=== PATIENT | female | born 1965 | race Two or more races ===

== ENCOUNTER 2017-11-17 07:58 | Outpatient (CLI) | payer OTHER ==
[~2017-11-17 07:58] MED LIST: KETO10TA2; TRAM1TAB98; ZYRTEC10 MG
== END 2017-11-17 08:15 | disposition home or self-care (01) ==
LOC: TOM 07:58
DX: R10.9 Unspecified abdominal pain (principal)

== ENCOUNTER 2017-12-21 11:13 | Outpatient (CLI) | payer OTHER | END 2017-12-21 11:23 | disposition home or self-care (01) | LOC: LAB 11:13 | DX: C18.3 Malignant neoplasm of hepatic flexure (principal); Z51.81 Encounter for therapeutic drug level monitoring ==

== ENCOUNTER 2017-12-27 09:09 | Outpatient (CLI) | payer OTHER | END 2017-12-27 13:34 | disposition home or self-care (01) | LOC: TOM 09:09 | DX: C18.3 Malignant neoplasm of hepatic flexure (principal) ==

== ENCOUNTER 2018-06-14 10:06 | Outpatient (CLI) | payer OTHER | END 2018-06-14 10:07 | disposition home or self-care (01) | LOC: SONOGRAMA 10:06 | DX: E04.1 Nontoxic single thyroid nodule (principal) ==

== ENCOUNTER 2018-07-14 10:57 | Outpatient (CLI) | payer OTHER | END 2018-07-14 13:28 | disposition home or self-care (01) | LOC: SONOGRAMA 10:57 | DX: C50.412 Malignant neoplasm of upper-outer quadrant of left female breast (principal); N60.11 Diffuse cystic mastopathy of right breast; N60.12 Diffuse cystic mastopathy of left breast ==

== ENCOUNTER 2018-07-28 08:54 | Outpatient (CLI) | payer OTHER | END 2018-07-28 08:59 | disposition home or self-care (01) | LOC: SONOGRAMA 08:54 | DX: E04.2 Nontoxic multinodular goiter (principal) ==

== ENCOUNTER 2018-08-23 10:20 | Outpatient (CLI) | payer OTHER | END 2018-08-23 10:24 | disposition home or self-care (01) | LOC: MAMO-SONO 10:20 | DX: C50.412 Malignant neoplasm of upper-outer quadrant of left female breast (principal); N60.11 Diffuse cystic mastopathy of right breast; N60.12 Diffuse cystic mastopathy of left breast ==

== ENCOUNTER 2019-01-30 08:06 | Outpatient (CLI) | payer OTHER | END 2019-01-30 08:46 | disposition home or self-care (01) | LOC: RAD 08:06 | DX: M54.2 Cervicalgia (principal); J30.89 Other allergic rhinitis ==

== ENCOUNTER 2019-10-13 08:03 | Outpatient (CLI) | payer OTHER | END 2019-10-13 08:21 | disposition home or self-care (01) | LOC: MAMO-SONO 08:03 | DX: N60.11 Diffuse cystic mastopathy of right breast (principal); N60.12 Diffuse cystic mastopathy of left breast; C50.412 Malignant neoplasm of upper-outer quadrant of left female breast ==

== ENCOUNTER 2019-10-16 07:12 | Outpatient (CLI) | payer OTHER | END 2019-10-16 07:55 | disposition home or self-care (01) | LOC: SONOGRAMA 07:12 → MAMO-SONO 07:15 → SONOGRAMA 07:55 | DX: R16.1 Splenomegaly, not elsewhere classified (principal) ==

== ENCOUNTER → 2020-01-22 | Emergency (ER) | payer OTHER ==
[~2020-01-22] VITALS: Ht 167.6 cm; Wt 115.7 kg
[~2020-01-22] MED LIST changes: +BACTRIM DS TAB1 EACH PO; +GLIMEPIRIDE1 M1 PO; +KETO10TA2 PO; +LOSARTAN POTASS50 MG PO; +METFORMIN HCL1000 M2 PO; +OCUVITE EYE HE1 EACH PO; +OSTERA TABLET1 EACH PO; +TIROSINT25 MCG PO; +ZYRTEC10 M3 PO
== END ==
LOC: ER 08:35
DX: I80.8 Phlebitis and thrombophlebitis of other sites (principal); L03.114 Cellulitis of left upper limb

== ENCOUNTER 2020-09-18 08:22 | Outpatient (CLI) | payer OTHER | END 2020-09-18 08:34 | disposition HB | LOC: SONOGRAMA 08:22 → MAMO-SONO 09:00 | PROVIDERS: ATTEND Internal Medicine | DX: E04.2 Nontoxic multinodular goiter (principal); E03.8 Other specified hypothyroidism ==

== ENCOUNTER → 2020-10-31 | Outpatient (CLI) | payer OTHER | END | disposition home or self-care (01) | LOC: MAMO-SONO 08:13 | PROVIDERS: ATTEND Surgery | DX: C50.412 Malignant neoplasm of upper-outer quadrant of left female breast (principal); N60.11 Diffuse cystic mastopathy of right breast; N60.12 Diffuse cystic mastopathy of left breast ==

== ENCOUNTER 2020-11-18 08:38 | Outpatient (CLI) | payer OTHER | END 2020-11-18 08:55 | disposition home or self-care (01) | LOC: SONOGRAMA 08:38 | PROVIDERS: ATTEND Pathology Anatomic Pathology & Clinical Pathology | DX: E04.2 Nontoxic multinodular goiter (principal) ==

== ENCOUNTER 2021-09-26 10:06 | Outpatient (CLI) | payer OTHER | END 2021-09-26 10:18 | disposition home or self-care (01) | LOC: RAD 10:06 | PROVIDERS: ATTEND Internal Medicine | DX: M54.6 Pain in thoracic spine (principal) ==

== ENCOUNTER 2022-06-04 10:59 | Outpatient (CLI) | payer OTHER | END 2022-06-04 11:02 | disposition home or self-care (01) | LOC: SONOGRAMA 10:59 | PROVIDERS: ATTEND Pathology Anatomic Pathology & Clinical Pathology | DX: K11.6 Mucocele of salivary gland (principal) ==

== ENCOUNTER 2024-02-09 16:12 | Emergency (ER) | payer OTHER ==
[~2024-02-09] VITALS: Ht 167.6 cm; Wt 120.2 kg
[2024-02-09] MEDS ORDERED: GRALISE600 MG (16:42)
[2024-02-09] MEDS ORDERED: ATACAND HCT 321 EAC1 (16:42)
[2024-02-09] MEDS ORDERED: NABUMETONE750 MG PO (16:43)
[2024-02-09] MEDS ORDERED: KETOROLAC TROMETHAMINE 30 MG VIAL IM STA (19:50)
[2024-02-09] MEDS ORDERED: ORPHENADRINE CITRATE 30 MG/ML AMPUL IM STA (19:54)
[2024-02-09] MEDS ORDERED: TRAMADOL HCL 50 MG TABLET PO STA (19:54)
[2024-02-09] MEDS ORDERED: KETOROLAC TROMETHAMINE 30 MG VIAL ONE (19:59)
[2024-02-09] MEDS ORDERED: ORPHENADRINE CITRATE 30 MG/ML AMPUL ONE (20:00)
[2024-02-09] MEDS ORDERED: CELEBREX200MG PO (21:52)
[2024-02-09] MEDS ORDERED: METAXALONE800 MG PO (21:52)
[2024-02-09] MEDS ORDERED: ZITHROMAX500 MG PO (21:52)
== END 2024-02-09 22:02 | disposition home or self-care (01) ==
LOC: ER 16:13
DX: M54.89 Other dorsalgia (principal); M19.90 Unspecified osteoarthritis, unspecified site; I10 Essential (primary) hypertension; Z91.013 Allergy to seafood; Z88.8 Allergy status to other drugs, medicaments and biological substances; Z85.9 Personal history of malignant neoplasm, unspecified

== ENCOUNTER 2024-08-10 11:19 | Inpatient (IN) | payer OTHER ==
[~2024-08-10] VITALS: Ht 167.6 cm; Wt 97.5 kg
[~2024-08-10 11:19] MED LIST changes: +ATACAND HCT 321 EAC1; +CELEBREX200MG PO; +GRALISE600 MG; +METAXALONE800 MG PO; +NABUMETONE750 MG PO; +ZITHROMAX500 MG PO
--- NOTE | 2024-08-10 12:57 | NUR ---
PACIENTE ALERTA Y ORIENTADA X 3. REFIERE 2 SEGOVIA CON TOS, CONGESTION, DOLOR DE BEAN Y CORPORAL.
[2024-08-10] MEDS ORDERED: GUAIFENESIN/DEXTROMETHORPHAN 10ML BLIST.PACK PO ONE ×2 (14:28→14:30)
[2024-08-10] MEDS ORDERED: CETIRIZINE HCL 5MG/5ML BLIST.PACK PO ONE (14:28)
[2024-08-10] MEDS ORDERED: ONDANSETRON HCL 2 MG/ML VIAL ONE (14:28)
[2024-08-10] MEDS ORDERED: CETIRIZINE HCL 5 MG/5 ML ML PO ONE (14:30)
[2024-08-10] MEDS ORDERED: ONDANSETRON HCL 2 MG/ML VIAL IV ONE (14:30)
--- NOTE | 2024-08-10 14:46 | NUR ---
PTE EVALUADA FREEDOM DUKE DR QUIE ORDENA TRATAMINETO LA CUAL SE EJECUTA. SE MANTIENE BAJO OBSERVACION.
[2024-08-10 14:52] LABS: HEMATOCRIT 39.7 % (36.0-45.00); HEMOGLOBIN 13.2 g/dL (12.0-15.00); MEAN CORPUSCULAR HEMOGLOBIN 32.6 pg (27.00-32.0); MEAN CORPUSCULAR HGB CONC 33.3 g/dl (32.0-36.0); PLATELET COUNT 69 K/uL (150-450); RED BLOOD COUNT 4.05 M/uL (4.00-6.00); RED CELL DISTRIBUTION WIDTH 14.7 % (11.5-14.5)
[2024-08-10] MEDS ORDERED: RINGERS SOLUTION,LACTATED 500 ML IV ONE (15:15)
[2024-08-10] MEDS ORDERED: OSELTAMIVIR PHOSPHATE 75 MG CAPSULE PO ONE ×2 (16:00→16:10)
[2024-08-10 17:40] LABS: PH,URINE 5.5 (5.0-8.0); URINE APPEARANCE Cloudy; URINE BILIRRUBIN Small (NEGATIVE); URINE BLOOD Negative; URINE COLOR Dark Yellow; URINE GLUCOSE Negative (NEGATIVE); URINE KETONE Trace (NEGATIVE); URINE LEUKOCYTE Trace; URINE NITRATE Negative; URINE PROTEIN 30 (NEGATIVE)
[2024-08-10 17:45] LABS: URINE BACTERIA 3725.6 uL (0.0-1933); URINE CAST 14.14 uL (0.0-1.40); URINE EPITHELIAL CELLS 73.9 uL (0.0-38.8); URINE RBC 29.6 uL (0.0-20.8); URINE WBC 56.6 uL (0.0-23.2)
[2024-08-10 18:10] LABS: URINE CRYSTALS FEW /HPF
[2024-08-10 18:21] LABS: ALBUMIN 3.1 gm/dL (3.4-5.0); BILIRUBIN TOTAL 1.06 mg/dL (0.3-1.2); CALCIUM 9.4 mg/dL (8.5-10.1); CREATININE SERUM 1.02 mg/dL (0.55-1.02); GFR 55.28; GLOBULINA 4.1 G/DL (2.4-3.5); POTASSIUM 4.39 mEq/L (3.5-5.1); TOTAL PROTEIN 7.2 gm/dL (6.4-8.2)
[2024-08-10] MEDS ORDERED: IPRATROPIUM BROMIDE 0.5 MG/2.5 ML AMPUL.NEB IH SCH (18:50)
[2024-08-10] MEDS ORDERED: CEFTRIAXONE SODIUM 2,000 MG in 0.9 % SODIUM CHLORIDE 100 ML IV SCH (18:54)
[2024-08-10] MEDS ORDERED: INSULIN LISPRO 1,000 UNIT/10 ML UNITS SUBCUTANEO PRN (19:00)
[2024-08-10] MEDS ORDERED: DEXTROSE 50 % IN WATER 0.5 G/ML DISP.SYRIN IV PRN (19:00)
[2024-08-10] MEDS ORDERED: ACETAMINOPHEN 500 MG GEL..CAP PO PRN (19:00)
[2024-08-10] MEDS ORDERED: 0.9 % SODIUM CHLORIDE 1,000 ML IV SCH (19:00)
[2024-08-10] MEDS ORDERED: CEFTRIAXONE SODIUM 2,000 MG VIAL ONE (19:36)
[2024-08-10] MEDS ORDERED: GUAIFEN/DEXTROMETHORPHAN/PE 10 ML BLIST.PACK PO ONE (19:36)
[2024-08-10 20:38] LABS: ABG PH 7.442 (7.35-7.45); ABG PO2 139.2 mmHg (80-100); ABG pCO2 27.7 mmHg (35-45); BICARBONATE 18.5 mmol/l (23-25); SaO2 99.2 %; Tco2 19.3 mmol/l; allen test SATISFACTORY; puncture site RADIAL LEFT
[2024-08-10 20:39] LABS: o2 21 %
[2024-08-10 20:47] LABS: INR 1.37; PARTIAL THROMBOPLASTIN TIME 36.2 SECONDS (22.0-34.0); PROTHROMBIN TIME 14.6 SECONDS (9.0-11.5)
[2024-08-10] MEDS ORDERED: GUAIFEN/DEXTROMETHORPHAN/PE 10 ML BLIST.PACK PO SCH (21:00)
[2024-08-10 22:36] VITALS: BP 182/84
[2024-08-11 01:06] VITALS: BP 190/87; O2SAT 99
[2024-08-11] MEDS ORDERED: LEVOTHYROXINE SODIUM 100 MCG TABLET PO SCH (06:00)
[2024-08-11] MEDS ORDERED: METOPROLOL SUCCINATE 100 MG TAB.SR.24H PO SCH (09:00)
[2024-08-11] MEDS ORDERED: CANDESARTAN CILEXETIL 8 MG TAB PO SCH (09:00)
[2024-08-11] MEDS ORDERED: OSELTAMIVIR PHOSPHATE 75 MG CAPSULE PO SCH (09:00)
[2024-08-11] MEDS ORDERED: FAMOTIDINE/PF 20 MG in 0.9 % SODIUM CHLORIDE 8 ML IV PUSH SCH (09:00)
[2024-08-11] MEDS ORDERED: CANDESARTAN CILEXETIL 16 MG TABLET PO SCH (09:00)
[2024-08-11] MEDS ORDERED: ENOXAPARIN SODIUM 40 MG/0.4 ML SYRINGE SUBCUTANEO SCH (09:00)
[2024-08-11 09:22] VITALS: BP 160/80; O2SAT 96
[2024-08-11 11:59] LABS: HEMATOCRIT 38.4 % (36.0-45.00); HEMOGLOBIN 12.9 g/dL (12.0-15.00); MEAN CELL VOLUME 97.5 fL (80.00-100.00); MEAN CORPUSCULAR HEMOGLOBIN 32.7 pg (27.00-32.0); MEAN CORPUSCULAR HGB CONC 33.6 g/dl (32.0-36.0); RED BLOOD COUNT 3.94 M/uL (4.00-6.00); RED CELL DISTRIBUTION WIDTH 14.5 % (11.5-14.5)
[2024-08-11] MEDS ORDERED: CANDESARTAN CILEXETIL 16 MG TABLET PO NR (12:00)
[2024-08-11 12:02] LABS: PLATELET COUNT 68 K/uL (150-450)
[2024-08-11 12:06] LABS: ERYTHROCYTE SEDIMENTATION RATE 36 mm/hr
[2024-08-11 13:13] LABS: ALBUMIN 2.9 gm/dL (3.4-5.0); BILIRUBIN TOTAL 0.9 mg/dL (0.3-1.2); CALCIUM 9.1 mg/dL (8.5-10.1); CREATININE SERUM 0.8 mg/dL (0.55-1.02); GFR 73.16; GLOBULINA 3.8 G/DL (2.4-3.5); MAGNESIUM 1.9 mg/dL (1.8-2.4); PHOSPHOROUS 2.1 mg/dL (2.5-4.9); POTASSIUM 4.32 mEq/L (3.5-5.1); TOTAL PROTEIN 6.7 gm/dL (6.4-8.2)
[2024-08-11 13:16] LABS: C-REACTIVE PROTEIN 1.36 MG/DL (0.00-0.29)
[2024-08-11 18:23] VITALS: BP 141/72; O2SAT 97
[2024-08-11] MEDS ORDERED: SODIUM PHOS,M-BASIC-D-BASIC 3 MMOL/ML VIAL IV ONE (23:45)
[2024-08-12 01:26] VITALS: BP 161/78; O2SAT 94
[2024-08-12 07:35] LABS: BILIRUBIN TOTAL 0.71 mg/dL (0.3-1.2); CALCIUM 9.2 mg/dL (8.5-10.1); CREATININE SERUM 0.68 mg/dL (0.55-1.02); GFR 88.26; GLOBULINA 3.7 G/DL (2.4-3.5); MAGNESIUM 1.8 mg/dL (1.8-2.4); PHOSPHOROUS 2.4 mg/dL (2.5-4.9); POTASSIUM 4.12 mEq/L (3.5-5.1); TOTAL PROTEIN 6.7 gm/dL (6.4-8.2)
[2024-08-12 07:52] LABS: HEMATOCRIT 38.3 % (36.0-45.00); HEMOGLOBIN 13.3 g/dL (12.0-15.00); MEAN CELL VOLUME 96.2 fL (80.00-100.00); MEAN CORPUSCULAR HEMOGLOBIN 33.3 pg (27.00-32.0); MEAN CORPUSCULAR HGB CONC 34.6 g/dl (32.0-36.0); RED BLOOD COUNT 3.98 M/uL (4.00-6.00); RED CELL DISTRIBUTION WIDTH 14.5 % (11.5-14.5)
[2024-08-12 08:49] LABS: PLATELET COUNT 75 K/uL (150-450)
[2024-08-12] MEDS ORDERED: CANDESARTAN CILEXETIL 32 MG TABLET PO SCH (09:00)
[2024-08-12 09:08] VITALS: BP 104/60; BP 134/87; O2SAT 100; O2SAT 94
[2024-08-12 19:00] VITALS: BP 133/65
[2024-08-13 02:38] VITALS: BP 166/78; O2SAT 93
[2024-08-13 10:02] VITALS: BP 150/82; O2SAT 97
[2024-08-13 17:14] VITALS: BP 181/84; O2SAT 95
[2024-08-13] MEDS ORDERED: HYDROCHLOROTHIAZIDE 12.5 MG CAPSULE PO SCH (18:16)
[2024-08-14 02:52] VITALS: O2SAT 96
[2024-08-14 06:37] LABS: HEMATOCRIT 36.7 % (36.0-45.00); HEMOGLOBIN 12.3 g/dL (12.0-15.00); MEAN CELL VOLUME 97.8 fL (80.00-100.00); MEAN CORPUSCULAR HEMOGLOBIN 32.9 pg (27.00-32.0); MEAN CORPUSCULAR HGB CONC 33.6 g/dl (32.0-36.0); RED BLOOD COUNT 3.75 M/uL (4.00-6.00); RED CELL DISTRIBUTION WIDTH 14.1 % (11.5-14.5)
[2024-08-14 06:42] LABS: PLATELET COUNT 79 K/uL (150-450)
[2024-08-14 07:27] LABS: ALBUMIN 2.6 gm/dL (3.4-5.0); BILIRUBIN TOTAL 0.84 mg/dL (0.3-1.2); CALCIUM 8.5 mg/dL (8.5-10.1); CREATININE SERUM 0.56 mg/dL (0.55-1.02); GFR 110.42; GLOBULINA 3.1 G/DL (2.4-3.5); MAGNESIUM 1.6 mg/dL (1.8-2.4); POTASSIUM 3.61 mEq/L (3.5-5.1); TOTAL PROTEIN 5.7 gm/dL (6.4-8.2)
[2024-08-14 09:25] VITALS: BP 160/80
[2024-08-15] MEDS ORDERED: TOPROL XL100 M1 PO (13:43)
[2024-08-15] MEDS ORDERED: ATACAND32 MG PO (13:43)
[2024-08-15] MEDS ORDERED: HYDROCHLOROTHIA25 MG PO (13:43)
[2024-08-15] MEDS ORDERED: BENZONATATE200 M1 PO (13:44)
[2024-08-15] MEDS ORDERED: SYNTHROID100 MCG PO (13:44)
[2024-08-15] MEDS ORDERED: BENZONATATE 100 MG CAPSULE PO PRN (13:45)
[2024-08-15] MEDS ORDERED: TUSSIN DM LIQU118 ML PO (13:45)
[2024-08-16] MEDS ORDERED: HYDROCHLOROTHIAZIDE 25 MG TABLET PO SCH (09:00)
== END 2024-08-15 14:18 | disposition home or self-care (01) | DRG 194 ==
LOC: ER 11:21 → MEDJ 18:59
PROVIDERS: General Practice; Internal Medicine; ADMIT Internal Medicine; ATTEND Internal Medicine
PROC: BB24ZZZ Computerized Tomography (CT Scan) of Bilateral Lungs (ICD-10-PCS; principal; 2024-08-10)
PROC: 3E0F7GC Introduction of Other Therapeutic Substance into Respiratory Tract, Via Natural or Artificial Opening (ICD-10-PCS; 2024-08-11)
DX: J10.1 Influenza due to other identified influenza virus with other respiratory manifestations (principal); A90 Dengue fever [classical dengue]; N39.0 Urinary tract infection, site not specified; D69.6 Thrombocytopenia, unspecified; E83.42 Hypomagnesemia; I10 Essential (primary) hypertension; E11.9 Type 2 diabetes mellitus without complications; E03.9 Hypothyroidism, unspecified; G47.33 Obstructive sleep apnea (adult) (pediatric)

== ENCOUNTER 2024-09-27 12:46 | Outpatient (CLI) | payer OTHER ==
[~2024-09-27 12:46] MED LIST changes: +ATACAND32 MG PO; +BENZONATATE200 M1 PO; +HYDROCHLOROTHIA25 MG PO; +SYNTHROID100 MCG PO; +TOPROL XL100 M1 PO; +TUSSIN DM LIQU118 ML PO
== END 2024-09-27 12:53 | disposition home or self-care (01) ==
LOC: MAMO-SONO 12:46
PROVIDERS: ATTEND Surgery
DX: N60.11 Diffuse cystic mastopathy of right breast (principal); N60.12 Diffuse cystic mastopathy of left breast

== ENCOUNTER → 2024-11-28 | Outpatient (CLI) | payer OTHER | END | disposition home or self-care (01) | LOC: NUCLEAR 11-24 07:00 | PROVIDERS: ATTEND Internal Medicine | DX: I11.9 Hypertensive heart disease without heart failure (principal) ==

== ENCOUNTER 2024-12-12 14:37 | Outpatient (CLI) | payer OTHER | END 2024-12-12 14:47 | disposition home or self-care (01) | LOC: SONOGRAMA 14:37 | PROVIDERS: ATTEND Internal Medicine | DX: E04.1 Nontoxic single thyroid nodule (principal) ==

== ENCOUNTER 2024-12-21 13:52 | Outpatient (CLI) | payer OTHER | END 2024-12-21 13:56 | disposition home or self-care (01) | LOC: SONOGRAMA 13:52 | PROVIDERS: ATTEND Pathology Anatomic Pathology & Clinical Pathology | DX: D34 Benign neoplasm of thyroid gland (principal); E04.2 Nontoxic multinodular goiter ==

== ENCOUNTER 2025-05-18 08:51 | Outpatient (CLI) | payer OTHER | END 2025-05-18 09:13 | disposition home or self-care (01) | LOC: TOM 08:51 | PROVIDERS: ATTEND Internal Medicine Endocrinology, Diabetes & Metabolism | DX: E21.3 Hyperparathyroidism, unspecified (principal) ==